=== PATIENT | male | born 1995 | race Hispanic/Latino ===

== ENCOUNTER 2016-03-11 06:06 | Emergency (ER) | payer OTHER ==
[~2016-03-11] VITALS: Ht 175.3 cm; Wt 88.5 kg
[2016-03-11 06:20] VITALS: BP 139/58
--- NOTE | 2016-03-11 06:31 | ED HEAD/FACIAL INJ COMPLAINT ---
History of Present Illness General Chief Complaint: Laceration Procedure Stated Complaint: "LAC INSIDE MOUTH S/P SOCCER GAME " Source: patient Exam Limitations: no limitations Vital Signs & Intake/Output Vital Signs & Intake/Output Vital Signs Date Time Temp Pulse Resp B/P Pulse O2 O2 Flow FiO2 Ox Delivery Rate 03/11 0620 97.4 57 18 139/58 98 Room Air Allergies Coded Allergies: No Known Allergies (03/11/16) Reconcile Medications No Known Home Medications Triage Note: HIT WITH ELBOW PLAYING [email or web address] LAST NIGHT 11 PM LAC BOTTOM LIP Triage Nurses Notes Reviewed? yes Onset: Abrupt Severity: mild, moderate Location: lower lip/chin Method of Injury: "I got elbowed in my chin" Loss of Consciousness: no loss of consciousness Associated Symptoms: bleeding HPI: 20yo gentleman presents after being elbowed in the lower lip while playing soccer approximately 7 hours ago in [facility]. He notes that he put an egg on the wound to protect it and stop the bleeding. He is able to move his jaw, talk, and swallow without a problem, but notes mild pain in his chin. He is otherwise well. Past History Travel History Traveled to [facility] past 21 day No Medical History Any Pertinent Medical History? see below for history Neurological: NONE EENT: NONE Cardiovascular: NONE Respiratory: NONE Gastrointestinal: NONE Hepatic: NONE Renal: NONE Musculoskeletal: NONE Psychiatric: NONE Endocrine: NONE Blood Disorders: NONE Cancer(s): NONE Surgical History Surgical History: none Psychosocial History What is your primary language [place] Tobacco Use: Never used Family History Hx Contributory? No Review of Systems Review of Systems Constitutional: Reports: no symptoms. EENTM: Reports: no symptoms. Respiratory: Reports: no symptoms. Cardiovascular: Reports: no symptoms. GI: Reports: no symptoms. Genitourinary: Reports: no symptoms. Musculoskeletal: Reports: no symptoms. Skin: Reports: no symptoms. Neurological/Psychological: Reports: no symptoms. Hematologic/Endocrine: Reports: no symptoms. Immunologic/Allergic: Reports: no symptoms. All Other Systems: Reviewed and Negative Physical Exam Physical Exam General Appearance: well developed/nourished, mild distress Head: atraumatic, normal appearance, mild tenderness on lower chin. no focal bony tenderness. Eyes: Bilateral: PERRL, EOMI. Ears, Nose, Throat: normal pharynx, hearing grossly normal, lower lip with 1.5cm flap, with white substance encasing laceration. Neck: normal inspection, supple Respiratory: normal breath sounds Cardiovascular: regular rate/rhythm Gastrointestinal: soft, non-tender Back: normal inspection Extremities: normal inspection, normal range of motion, no edema Psychiatric: awake, alert, oriented x 3 Cranial Nerves: normal hearing, normal speech, PERRL Coordination/Gait: normal finger to nose, normal gait Motor/Sensory: no motor/sensory deficits Skin: intact, normal color, warm/dry Lymphatic: no anterior cervical wendy Progress Differential Diagnosis: lip laceration, contusion... i doubt fx. Plan of Care: Current Medications Sig/Hannah Start time Last Medication Dose Stop Time Status Admin Ibuprofen 800 MG ONCE ONE 03/11 07 UNVr (Motrin) 03/11 700 Departure Departure Disposition: HOME OR SELF CARE Condition: Stable Clinical Impression Primary Impression: Lip laceration Secondary Impressions: Chin contusion Referrals: UNKNOWN (PCP/Family) Departure Forms: Customer Survey General Discharge Information Prescriptions: Current Visit Scripts No Known Home Medications Procedures Laceration/Wound Repair Laceration/Wound Repair: Wound Location: face Wound's Depth, Shape: flap Wound Length (cm): 1.5 Irrigated w/ Saline (ccs): 100 Betadine Prep? No Anesthesia: 1% lidocaine Volume Anesthetic (ccs): 5 Wound Repaired With: sutures Suture Size/Type: 4:0, gut Number of Sutures: 5 Progress: excellent result
== END 2016-03-11 06:58 ==
LOC: ERH 06:06
DX: S01.511A Laceration without foreign body of lip, initial encounter (principal); S00.83XA Contusion of other part of head, initial encounter; W51.XXXA Accidental striking against or bumped into by another person, initial encounter; Y93.66 Activity, soccer